=== PATIENT | male | born 1940 | race Caucasian/White ===

== ENCOUNTER 2021-01-24 08:50 | Day surgery (SDC) | payer MEDICARE, OTHER ==
[~2021-01-24] VITALS: Ht 182.9 cm; Wt 86.0 kg
[2021-01-24] MEDS ORDERED: VIT1CAPS42 PO (09:21)
[2021-01-24] MEDS ORDERED: CALC1TAB4 PO (09:21)
[2021-01-24] MEDS ORDERED: IRON1TAB60 PO (09:21)
[2021-01-24] MEDS ORDERED: OMEP-110 PO (09:21)
[2021-01-24] MEDS ORDERED: ATOR40TA PO (09:21)
[2021-01-24] MEDS ORDERED: MULT-658 PO (09:21)
[2021-01-24] MEDS ORDERED: OMEG1CAP23 PO (09:21)
[2021-01-24 09:50] LABS: BASOPHILS % (AUTO) 3 % (0-1); EOSINOPHILS % (AUTO) 5 % (1-7); LYMPHOCYTES % (AUTO) 15 % (22-44); MEAN CORPUSCULAR HEMOGLOBIN 29.7 pg (27.5-34.5); MEAN CORPUSCULAR HGB CONC 33.3 g/dL (33.2-36.2); MEAN PLATELET VOLUME 8.2 fL (7.4-10.4); MONOCYTES % (AUTO) 15 % (2-9); NEUTROPHILS % (AUTO) 63 % (42-75); PLATELET COUNT 239 x10^3/uL (130-400); RED BLOOD COUNT 5.28 x10^6/uL (4.38-5.82); RED CELL DISTRIBUTION WIDTH 14.9 % (9.4-14.8)
[2021-01-24 09:56] LABS: ANION GAP 7 mmol/L (5-15); CALCIUM 9.4 mg/dL (8.5-10.1); CHLORIDE 110 mmol/L (98-107); CREATININE 0.98 mg/dL (0.7-1.3)
[2021-01-24] MEDS ORDERED: FENTANYL PF 100 MCG/2ML ONE (10:44)
[2021-01-24] MEDS ORDERED: TICAGRELOR 90 MG TABLET ONE (10:44)
[2021-01-24] MEDS ORDERED: BIVALIRUDIN 250 MG ONE (10:45)
[2021-01-24] MEDS ORDERED: HEPARIN 1,000 UNITS/ML, 10ML ONE (10:45)
[2021-01-24] MEDS ORDERED: NITROGLYCERIN 5 MG/ML, 10ML ONE (10:45)
[2021-01-24] MEDS ORDERED: LIDOCAINE-MPF 1%, 5ML ONE (10:45)
[2021-01-24] MEDS ORDERED: MIDAZOLAM 1 MG/ML, 2ML ONE (10:45)
[2021-01-24] MEDS ORDERED: VERAPAMIL 2.5 MG/ML, 2ML ONE (10:45)
== END 2021-01-24 13:00 | disposition home or self-care (01) ==
LOC: CACL 08:50
PROVIDERS: ATTEND Internal Medicine Cardiovascular Disease
DX: R93.1 Abnormal findings on diagnostic imaging of heart and coronary circulation (principal); I49.3 Ventricular premature depolarization; I25.5 Ischemic cardiomyopathy; I25.9 Chronic ischemic heart disease, unspecified; I12.9 Hypertensive chronic kidney disease with stage 1 through stage 4 chronic kidney disease, or unspecified chronic kidney disease; N18.2 Chronic kidney disease, stage 2 (mild); E78.5 Hyperlipidemia, unspecified; K21.9 Gastro-esophageal reflux disease without esophagitis; Z79.899 Other long term (current) drug therapy; Z90.49 Acquired absence of other specified parts of digestive tract; Z80.0 Family history of malignant neoplasm of digestive organs
CPT/HCPCS: 36415; 80048; 85025; 93458; 99156; C1769; C1894; J1644; J2250; J3010; Q9967; J0583